=== PATIENT | male | born 1975 | race Caucasian/White ===

== ENCOUNTER 2024-01-17 12:42 | Emergency (ER) | payer BC, SELFPAY ==
[2024-01-17 13:14] LABS: % Basophils 0.5 % (0-2); % Eosinophils 4.8 % (0-6); % Immature Granulocytes 0.1 % (0-0.5); % Lymphocytes 18.3 % (20.5-51.1); % Monocytes 6.5 % (1.7-9.3); % Neutrophils 69.8 % (42.2-75.2); Absolute Eosinophils 0.4 10^3/uL (0-0.7); Absolute Lymphocytes 1.4 10^3/uL (1.2-3.4); Absolute Monocytes 0.5 10^3/uL (0.1-0.6); Absolute Neutrophils 5.2 10^3/uL (1.4-6.5); Hematocrit 46.7 % (39.0-52.0); Hemoglobin 15.5 g/dL (13.0-18.0); Mean Corp Hgb Conc. 33.2 g/dL (33.0-37.0); Mean Corpuscular Hgb 30.1 pg (27.0-31.0); Mean Corpuscular Volume 90.7 fL (80.0-94.0); Nucleated Red Blood Cells % 0 % (-); Platelet Count 251 10^3/uL (130-400); Red Blood Cell Count 5.15 10^6/uL (4.70-6.10); Red Cell Dist. Width 12.7 % (11.5-14.5); White Blood Cell Count 7.4 10^3/uL (4.8-10.8)
[2024-01-17 13:36] LABS: Troponin I < 0.012 ng/ml
[2024-01-17 14:00] VITALS: BP 134/81; BMI 30.5
[2024-01-17 14:30] LABS: ALT (SGPT) 33 U/L (0-50); AST (SGOT) 32 U/L (17-59); Albumin 4.3 g/dl (3.5-5.0); Alkaline Phosphatase 74 U/L (38-126); Blood Urea Nitrogen 17 mg/dl (9-20); Calcium 9.7 mg/dl (8.4-10.2); Carbon Dioxide 26 mmol/L (22-30); Chloride 106 mmol/L (98-107); Estimated Creatinine Clearance 103 ml/min; Glucose 112 mg/dl (70-99); Potassium 4.6 mmol/L (3.5-5.1); Sodium 135 mmol/L (135-145); Total Bilirubin 0.8 mg/dl (0.2-1.3); eGFR > 60.00
--- NOTE | 2024-01-17 14:45 | ED.GENMED ---
History of Present Illness
General
Chief Complaint: Dizziness
Source: patient
Exam Limitations: none
Time Seen by Provider: 01/17/24 14:30
Travel History
Have you had any contact with someone who has COVID-19?: No
Do you have any symptoms of coronavirus? Fever > 100 degrees, chills, cough, shortness of breath, sore throat, loss of taste or smell, muscle aches, or headache?: No
History of Present Illness
History of Present Illness:
See MDM
Past History
Past History
ED Past Medical History: None
ED Past Surgical History: None
Social History
Tobacco: Non-smoker
Personal:
Living: with family
Employment: Employed
Phy Exam
Physical Exam
Physical Exam:
See MDM
Course
Orders/Labs/Results
Orders:
Orders
01/17/24 12:45
Electrocardiogram (*1) Urgent
Reason for Study: Vertigo / Dizzy
01/17/24 12:46
EKG- Treatment ONCE
01/17/24 12:54
Complete Blood Count/With Diff Urgent
Troponin I Urgent
01/17/24 13:59
CMP [Comprehensive Metabolic Panel] Urgent
01/17/24 14:44
NSS 1000mL Bolus over 1 hr 0.9% Sodium Chloride 1000 ml [Nss] 1,000 ml IV BOLUS
diazePAM [Valium Injection] 2 mg IV NOW STA
Abnormal Lab Results
01/17/24 01/17/24
12:54 13:59
MPV 11.0 H fL
(7.4-10.4)
Lymphocytes % 18.3 L %
(20.5-51.1)
Glucose 112 H mg/dl
(70-99)
01/17/24 12:54
03/24/24 13:59
Vital Signs
Initial and Last Documented VS:
Initial Vital Signs
Temp Pulse Resp Pulse Ox
97.8 F 61 17 99
01/17/24 12:44 01/17/24 12:44 01/17/24 12:44 01/17/24 12:44
Last Documented Vital Signs
Temp Pulse Resp BP Pulse Ox
97.8 F 53 11 134/81 95
01/17/24 12:44 01/17/24 14:30 01/17/24 14:30 01/17/24 14:00 01/17/24 14:30
MDM/Problems Addressed
Differential Diagnosis Includes:
HPI and MDM Narrative:
48-year-old male presenting with intermittent dizziness. Symptoms have progressed over the past 24 hours. Patient had an issue like this a few years back noticed the vertigo. At the time, he had a negative CT of his head. Patient went to urgent
care and was told orthostatic vital signs which were normal. Patient states symptoms are sometimes worse with movements. He states he gets nauseous and feels seasick when it happens. He does describe the room spinning.
On exam, he is well-appearing nontoxic. There is mild right-sided horizontal fatigable nystagmus with certain head movements. On exam, he has cerumen impaction to the right ear. He has normal finger-nose and normal [id number] bilaterally. We
discussed the likely diagnosis of peripheral vertigo whether it is related to BPPV versus cerumen impaction. Will give dose of Valium and fluids for symptoms and will prescribe meclizine. We discussed Debrox as an outpatient and follow-up with PCP.
Physical exam
General: Well appearing and non-toxic
HEENT: protecting airway. Right cerumen impaction. Mild right-sided fatigable horizontal nystagmus
Neck: supple
CV: No evidence of cyanosis. Regular rate and rhythm
Resp: No accessory muscle use
Abd: Non-distended
Extremities: No deformities
Neuro: alert. No cerebellar signs
Psych: Normal affect
Skin: Intact
Problems Addressed including Acute and Chronic Conditions affecting care:
1. Vertigo
Acuity: acute
Prognosis: stable
Details: Will give dose of Valium. Discussed peripheral vertigo and meclizine and return precautions
2. Cerumen impaction
Acuity: acute
Prognosis: stable
Details: Discussed Debrox as an outpatient
Updates
Differential Diagnosis (but not limited to): BPPV, cerumen impaction, peripheral vertigo
Testing considered: CT head but he has no cerebellar signs
Drug therapy (if applicable): OTC meds, please see d/c instruction regarding Rx drugs
Amount and/or Complexity of Data Reviewed
Clinical info obtained from: Patient
External data reviewed: N/A
Labs I independently reviewed (but not limited to): Troponin negative
Radiology: N/A
Pulse Ox: not hypoxic
EKG independently reviewed: Sinus rhythm, normal axis, no STEMI
Shutdown Coordinator: N/A
Critical Care: N/A
Risk of Complication:
Social Determinants of health: Good social support
Discussed with other providers: N/A
Escalation of Care includes Admit/Obs: After being observed in the Emergency Department, pt stable for discharge.
Occasional wrong word or 'sound a like' substitutions may have occurred due to the inherent limitations of voice recognition software. Read the chart carefully and recognize, using context, where substitutions have occurred.
*Critical Care Note
Total Time (30-74mins, 75-104mins- exclusive of procedures): Not Applicable
ED Attending Note
-
Portions of this chart may have been created with voice recognition software.� Occasional wrong word or��sound alike� substitutions may have occurred due to the inherent limitations of voice recognition software.
Discharge Plan
Departure
Patient Disposition: Home (Routine Discharge)
Date of Disposition: 01/17/24
Time of Disposition: 14:49
Patient with high blood pressure during this ER visit?: No
Discharge Problem:
Episodic peripheral vertigo, Impacted cerumen of right ear
Instructions: Vertigo (a Type of Dizziness) (DC)
Prescriptions:
New
meclizine [Antivert] 25 mg Tablet,Chewable
25 mg PO BIDPRN PRN (Reason: nausea or vertigo) Qty: 10 0RF
No Action
meclizine 25 mg tablet
25 mg PO BID PRN (Reason: dizziness) Qty: 10 0RF
Activity Restrictions/Additional Instructions:
Please return for any worsening symptoms.
You may return at any time if you have further concerns.
Please follow up with your doctor at the first available appointment, preferably this week.
Please use earwax solution (such as Debrox) in the right ear.
Thank you for choosing [facility].
Interventions
Interventions:
*Risk Screen - Suicide Last Done: 01/17/24 12:45
*General Assessment Last Done: 01/17/24 12:45
*Neglect/Abuse Screening Last Done: 01/17/24 12:45
ED- Fall Risk Assessment Last Done: 01/17/24 14:03
*ED COVID-19 Vaccine History Last Done: 01/17/24 12:45
ED- Neurological Assessment Last Done: 01/17/24 13:40
ED Swallowing Screen Last Done: 01/17/24 14:01
[2024-01-17] MEDS: VALIUM INJECTION 2 MG IV (14:50)
[2024-01-17] MEDS: NSS 1000 IV (14:56)
[2024-01-17 15:00] VITALS: BP 130/84
== END 2024-01-17 15:36 | disposition home or self-care (01) ==
LOC: EMR 12:42
PROVIDERS: Emergency Medicine; EMERGENCY PHYSICIAN Student in an Organized Health Care Education/Training Program; FAMILY PHYSICIAN Family Medicine
DX: H61.21 Impacted cerumen, right ear (principal); H81.399 Other peripheral vertigo, unspecified ear; H55.00 Unspecified nystagmus; Z91.048 Other nonmedicinal substance allergy status
CPT/HCPCS: 99284; 96374; 96361; 80053; 84484; 85025; 93005

== ENCOUNTER 2025-07-15 17:29 | Emergency (ER) | payer BC, SELFPAY ==
[2025-07-15 17:38] VITALS: BP 131/96
[2025-07-15 17:54] LABS: Hematocrit 43.2 % (39.0-52.0); Hemoglobin 14.4 g/dL (13.0-18.0); Mean Corp Hgb Conc. 33.3 g/dL (33.0-37.0); Mean Corpuscular Volume 89.3 fL (80.0-94.0); Nucleated Red Blood Cells % 0 % (-); Platelet Count 269 10^3/uL (130-400); Red Cell Dist. Width 12.9 % (11.5-14.5)
[2025-07-15 18:14] VITALS: BP 140/84
[2025-07-15 18:26] LABS: ALT (SGPT) 26 U/L (0-50); AST (SGOT) 28 U/L (17-59); Albumin 4.4 g/dl (3.5-5.0); Alkaline Phosphatase 75 U/L (38-126); Blood Urea Nitrogen 31 mg/dl (9-20); Calcium 10.1 mg/dl (8.4-10.2); Carbon Dioxide 27 mmol/L (22-30); Chloride 105 mmol/L (98-107); Glucose 101 mg/dl (70-99); Potassium 4.7 mmol/L (3.5-5.1); Sodium 136 mmol/L (135-145); Total Protein 7.3 g/dl (6.3-8.2); eGFR > 60.00
[2025-07-15] MEDS: MORPHINE SULFATE 4 MG IV (18:37)
[2025-07-15 18:38] LABS: Troponin I < 0.012 ng/ml
[2025-07-15 19:00] VITALS: BP 152/85
[2025-07-15] MEDS: NSS 1000 IV (19:04)
--- NOTE | 2025-07-15 19:26 | ED.GENMED ---
History of Present Illness
General
Chief Complaint: Chest Pain
Time Seen by Provider: 07/15/25 18:21
History of Present Illness
History of Present Illness:
49-year-old male with no past medical history presents to emergency department for evaluation of intense left-sided chest and back pain for the past several hours. Began earlier today gradually but progressively got worse. Denies any trauma to the
area. Worse with any movement or deep breathing. No recent fevers chills or illnesses of any kind. No recent coughing. Does not take any exogenous hormones and denies recent surgery or prolonged travel. Went to urgent care and was given aspirin
with modest improvement
Past History
Past History
ED Past Medical History: None
ED Past Surgical History: None
Social History
Tobacco: Non-smoker
Personal:
Living: with family
Employment: Employed
Review of Systems
Review of Systems
Allergies reviewed?: Yes
All Other Systems: ROS reviewed and negative except as documented in HPI and ROS
Phy Exam
Physical Exam
Physical Exam:
GEN: Profoundly uncomfortable, writhing in pain
HEENT: Oral mucosa moist, no scleral icterus
Cardiac: Regular rate and rhythm, no murmur
Lung: No respiratory distress, no tachypnea, lungs clear to auscultation however diminished bases due to poor inspiratory effort
MSK: No gross deformity or injuries
Skin: Good color, no pallor or jaundice, no rashes
Neuro: AO x3, moves all extremities freely
Psych: Calm, cooperative
Scores
Heart Score for Chest Pain Patients
STEMI patient?: No
History: Slightly or Non-Suspicious
ECG: Normal
Age: >45 - <65 years
Risk Factors: No Risk Factors
Troponin: </= Normal Limit
Heart Score for Chest Pain Patients: 1
Heart Score Risk: 2.5% MACE over next 6 weeks
Course
Orders/Labs/Results
Orders:
Orders
07/15/25 17:32
Electrocardiogram (*1) Urgent
Reason for Study: Chest Pain
EKG- Treatment ONCE
07/15/25 17:47
Complete Blood Count/With Diff Urgent
Comprehensive Metabolic Panel Urgent
Creatine Phosphokinase Urgent
Comment: ADD ON
Troponin I Urgent
07/15/25 18:14
Add On- LAB Urgent
Tests Added?: cpk
07/15/25 18:28
CR Chest Portable - 1 View Urgent
Comment:
Reason For Exam: chest pain
Reason Study Needs to be Portable: Other
07/15/25 18:35
Morphine Sulfate 4 mg IV NOW STA
07/15/25 18:56
0.9% Sodium Chloride 1000 ml [Nss] 1,000 ml IV BOLUS
07/15/25 19:26
Ketorolac [Toradol] 15 mg IV NOW STA
07/15/25 19:30
D-Dimer Urgent
07/15/25 20:22
Fosfomycin [Monurol] 3 gm PO ONCE ONE
Abnormal Lab Results
07/15/25
17:47
WBC 11.6 H 10^3/uL
(4.8-10.8)
MPV 10.8 H fL
(7.4-10.4)
Absolute Neuts (auto) 8.8 H 10^3/uL
(1.4-6.5)
Absolute Monos (auto) 1.2 H 10^3/uL
(0.1-0.6)
Neutrophils % 75.8 H %
(42.2-75.2)
Lymphocytes % 11.8 L %
(20.5-51.1)
Monocytes % 10.5 H %
(1.7-9.3)
BUN 31 H mg/dl
(9-20)
Glucose 101 H mg/dl
(70-99)
Creatine Kinase 282 H U/L
(55-170)
07/15/25 17:47
07/15/25 17:47
Vital Signs
Initial and Last Documented VS:
Initial Vital Signs
Temp Pulse Resp BP Pulse Ox
98.1 F 72 16 131/96 97
07/15/25 17:38 07/15/25 17:38 07/15/25 17:38 07/15/25 17:38 07/15/25 17:38
Last Documented Vital Signs
Temp Pulse Resp BP Pulse Ox
98.1 F 67 18 140/84 98
07/15/25 17:38 07/15/25 18:15 07/15/25 18:59 07/15/25 18:14 07/15/25 19:26
MDM/Problems Addressed
MDM/Problems Addressed:
Patient's EKG is reassuring and lab workup is negative, D-dimer negative is particular reassuring given low level of clinical suspicion for PE/DVT. His pain did improve after giving NSAIDs. Will treat as a musculoskeletal etiology versus chest
wall inflammatory process
*Pulse Oximetry
SaO2: 98
Oxygen Mode of Delivery: Room air
Patient hypoxic: no
*Critical Care Note
Total Time (30-74mins, 75-104mins- exclusive of procedures): Not Applicable
ED Attending Note
-
Portions of this chart may have been created with voice recognition software.� Occasional wrong word or��sound alike� substitutions may have occurred due to the inherent limitations of voice recognition software.
Discharge Plan
Departure
Patient Disposition: Home (Routine Discharge)
Date of Disposition: 07/15/25
Time of Disposition: 20:27
Patient with high blood pressure during this ER visit?: No
Discharge Problem:
Atypical chest pain
Instructions: Chest Pain That Is Not Caused by the Heart (DC)
Prescriptions:
New
diclofenac sodium 75 mg tablet,delayed release (DR/EC)
75 mg PO BID PRN (Reason: Pain) Qty: 20 0RF
methocarbamol 750 mg tablet
750 - 1,500 mg PO Q8H PRN (Reason: pain) Qty: 20 0RF
No Action
cetirizine [Zyrtec] 10 mg Tablet
10 mg PO DAILY
naproxen sodium [Aleve] 220 mg Tablet
220 mg PO BID
Referrals:
Antoine Apodaca MD [Family Provider, Family Practice]
Interventions
Interventions:
*Risk Screen - Suicide Last Done: 07/15/25 17:38
*General Assessment Last Done: 07/15/25 17:38
*Neglect/Abuse Screening Last Done: 07/15/25 17:38
*ED COVID-19 Vaccine History Last Done: 07/15/25 18:17
ED- Cardiac Assessment Last Done: 07/15/25 18:15
Discharge Date and Time
Print Language: TRINIDADIAN
[2025-07-15] MEDS: TORADOL 15 MG IV (19:31)
[2025-07-15 19:57] LABS: D-Dimer < 0.27 ug/mlFEU (0.00-0.50)
[2025-07-15] MEDS: ZANAFLEX 4 MG PO (20:32)
== END 2025-07-15 20:39 | disposition home or self-care (01) ==
LOC: EMR 17:29
PROVIDERS: EMERGENCY PHYSICIAN Emergency Medicine; FAMILY PHYSICIAN Family Medicine
DX: R07.89 Other chest pain (principal); M54.9 Dorsalgia, unspecified
CPT/HCPCS: 99283; 96374; 96375; 96361; 71045; 80053; 82550; 84484; 85025; 85379; 93005